=== PATIENT | male | born 2005 | race Caucasian/White ===

== ENCOUNTER 2024-03-09 19:54 | Emergency (ER) | payer BC, SELFPAY ==
[2024-03-09 19:55] VITALS: BP 159/99
--- NOTE | 2024-03-09 20:57 | ED.GENMED ---
History of Present Illness
General
Chief Complaint: Musculo-Skeletal Complaint
Source: patient
Exam Limitations: none
Time Seen by Provider: 03/09/24 20:35
Nursing documentation reviewed up to this point in time: agreed with
Travel History
Have you had any contact with someone who has COVID-19?: No
Do you have any symptoms of coronavirus? Fever > 100 degrees, chills, cough, shortness of breath, sore throat, loss of taste or smell, muscle aches, or headache?: No
History of Present Illness
History of Present Illness:
18-year-old male with no chronic medical issues presents to the emergency room with his parents for evaluation of left ankle injury. Patient was playing baseball in the driveway with his brother. He says that he landed awkwardly on his left ankle
and suffered an inversion injury. He says he had immediate swelling and difficulty weightbearing. Father brought him to the emergency room reassessed. He denies any pain in the left knee. He denies any other injuries.
Review of Systems
Review of Systems
All Other Systems: ROS reviewed and negative except as documented in HPI and ROS
Musculoskeletal: Reports joint pain and joint swelling
Phy Exam
Physical Exam
Physical Exam:
General: Well appearing and non-toxic
HEENT: protecting airway
Neck: appears supple
CV: No evidence of cyanosis
Resp: No accessory muscle use
Abd: Non-distended
Extremities: No deformity left ankle; he does have prominent swelling over the lateral malleolus; he has tenderness over the lateral malleolus on the left, no tenderness to the medial malleolus on the left, no tenderness of the midfoot or along the
fifth metatarsal; no calcaneal tenderness; no calf tenderness, no tenderness in the left knee and full range of motion of the left knee; he has pain with range of motion left ankle; right lower extremity atraumatic; good palpable left DP pulse
Neuro: Alert
Psych: Normal affect
Skin: Intact
Scores
Heart Failure Risk
Heart Failure Risk Score: Not Applicable
Heart Score for Chest Pain Patients
STEMI patient?: Not applicable
Withdrawal Assessment of Alcohol
Withdrawal Assessment Completed?: Not applicable
Course
Orders/Labs/Results
Orders:
Orders
03/09/24 19:57
Ankle, left 3 view CR [CR Ankle - Left Min 3 Views ] Urgent
Comment:
Reason For Exam: injury
Vital Signs
Initial and Last Documented VS:
Initial Vital Signs
Temp Pulse Resp BP Pulse Ox
37.1 C 81 16 159/99 99
03/09/24 19:55 03/09/24 19:55 03/09/24 19:55 03/09/24 19:55 03/09/24 19:55
Last Documented Vital Signs
Temp Pulse Resp BP Pulse Ox
37.1 C 81 16 159/99 99
03/09/24 19:55 03/09/24 19:55 03/09/24 19:55 03/09/24 19:55 03/09/24 19:55
MDM/Problems Addressed
Differential Diagnosis Includes:
Fracture, sprain
MDM/Problems Addressed:
18-year-old male presents after inversion injury of the left ankle; having difficulty weightbearing, prominent swelling of the lateral malleolus. Hypertensive but otherwise normal vitals�hypertension likely secondary to pain. Physical exam as
above. Sent for an x-ray of the ankle which reviewed by me shows no acute fracture. Suspect likely significant ankle sprain. Will provide compression wrap, crutches for patient to use as needed�advised weight-bear as tolerated. Advised regarding
rest, ice, elevation. Provided orthopedic referral as needed for persistent symptoms, otherwise follow-up with PCP for reassessment. Spoke about return precautions all questions answered.
*Radiology
Radiology exam reviewed: preliminary read by ED provider and radiology read reviewed
*Pulse Oximetry
Patient hypoxic: no
*Critical Care Note
Total Time (30-74mins, 75-104mins- exclusive of procedures): Not Applicable
Data Reviewed
Source: patient and family (Mother and father)
ED Attending Note
-
Portions of this chart may have been created with voice recognition software.� Occasional wrong word or��sound alike� substitutions may have occurred due to the inherent limitations of voice recognition software.
Discharge Plan
Departure
Patient Disposition: Home (Routine Discharge)
Date of Disposition: 03/09/24
Time of Disposition: 20:55
Patient with high blood pressure during this ER visit?: Yes
Discharge Problem:
Ankle sprain
Instructions: Ankle Sprain (DC), RICE Therapy
Referrals:
Pankaj Miranda DPM [Active] - As needed (receivables specialist--as needed for persistent pain or swelling)
Activity Restrictions/Additional Instructions:
Thank you for visiting the Emergency Department at [facility].
1. Please schedule a follow up appointment as directed. Call first thing tomorrow morning to make an appointment.
2. If indicated, please take your medications as instructed and indicated on discharge paperwork.
3. If any of your symptoms do not improve, or persist, or become more severe within 6-12 hours, please return to the emergency department for further care.
4. Please return to the emergency department if you develop a headache, neck pain/stiffness, fever greater than 100.4F, chest pain, shortness of breath, persistent nausea, vomiting, slurred speech, difficulty walking, numbness/tingling, weakness,
signs of infection or any other symptoms that are worrisome to you.
Please call [phone] if you have any questions.
Interventions
Interventions:
*General Assessment Last Done: 03/09/24 19:55
Discharge Date and Time
Print Language: TURKISH
[2024-03-09 21:12] VITALS: BP 131/70
== END 2024-03-09 21:12 | disposition home or self-care (01) ==
LOC: EMR 19:54
PROVIDERS: EMERGENCY PHYSICIAN Emergency Medicine; FAMILY PHYSICIAN Pediatrics
DX: S93.402A Sprain of unspecified ligament of left ankle, initial encounter (principal); X50.1XXA Overexertion from prolonged static or awkward postures, initial encounter; Y93.64 Activity, baseball; R03.0 Elevated blood-pressure reading, without diagnosis of hypertension
CPT/HCPCS: 99283; 73610